=== PATIENT | female | born 1945 | race Caucasian/White ===

== ENCOUNTER 2025-05-12 14:01 | Outpatient (REF) | payer MEDICARE, SELFPAY ==
--- OUTSIDE RECORDS SUMMARY | 2025-04-02 06:15 | XMS_ITS | Continuity of Care Document ---
Author Organization [facility] Address [address] [place] [address] Dr [address] [place] [address] Phone Care Team Providers Care Platform Mill Supervisor Name Role Phone Alberto SEGURA, MIGUEL, Randall CANNON Unavailable U navailable Allergies, Adverse Reactions, Alerts Substance Reaction Status Criticality PENICILLIN Active No Information Procedures Procedure Date Offic/outpt E&m Estab 5 Min Trial- Telem edicine CT & [place] Office/Oupt E&M New Pt 45 Mins- CT & [place] Surgical Stockings CVR Reveal Thigh High Duplex Scan-extrem Veins; Uni/ CT & [place] F Advance Directives Directive Yes / No Effective Date File Name No Information Encounters Encounter Description Practice Location Reason(s) For Visit Diagnoses Date Provider Providers Copied on Encounter [facility], [address] [place] [address] Dr Moe [address], [id number], [place] tel:[phone] [facility] No Information Alberto SEGURA, DAVIS RIVERA. [address] [facility] [address], [facility] [place], [id number], [place]. tel:[phone] Offic/outpt E&m Estab 5 Min Trial- Telemedicine CT & [place] [facility], [address] [place] [address] Dr Moe [address]Kathy [place], [id number], tel:[phone] CVR - [facility] Localized edemaCramp and spasmRestless legs syndromeVenou s insufficiency (chronic) (peripheral)E ssential (primary) hypertensionP ruritus, unspecified 5 Luisito Urbano. [facility] [address], [place], [id number], [place]. tel:[phone] Referring Provider: Gina Jose [facility] [address], [place], [address]. tel:[phone] Office/Oupt E&M New Pt 45 Mins- CT & [place] [facility], [address] [place] [address] [address], [place], [id number], [place] tel:[phone] CVR - [place] Varicose veins of left lower extremity with other complications Pain in left lower legLocalized edemaCramp and spasmRestless legs syndromeEssen tial (primary) hypertensionP ruritus, unspecified 5 Alberto SEGURA RVT, DAVIS Pereira. [facility] [address], [place], [id number], [place]. tel:[phone] Referring Provider: Gina Jose [facility] [address], [place], [address]. tel:[phone] [facility], [address] [place] [address] [address], [place], [id number], [place] tel:[phone] CVR [place] Varicose veins of left lower extremity with pain 5 Alberto SEGURA RVT, DAVIS Pereira. [facility], [place], [id number], [place]. tel:[phone] Referring Provider: Gina Jose [facility] [address], [place], [address]. tel:[phone] Family History Family Member Type Diagnosis Age At Onset No Information Payers Payer name Insurance type Covered green party ID Authorroxannea rickey(s) [employer] Medicare CI [id number] Social History Type Description Quantity Date Captured Comments Sex Female Smoking Status No Information Chief Complaint And Reason For Visit No Information Reason For Referral Reason For Referral No Information Plan Of Treatment Date Type Action Status Appointment Naomi Cannon BOOKED Appointment Naomi Cannon BOOKED History Of Present Illness Encounter Date Complaint History Of Prese nt Illness No Information Functional Status Date Functional Assessmen t No Information Instructions Date Instruction Additional Infor mation Patient education booklet given Related to Localized edema Pre and post instruc tions reviewed and provided Related to Localized edema Patient education booklet given Related to Varicose veins of left lower extremity with other complications Pre and post instruc tions reviewed and provided Related to Varicose veins of left lower extremity with other complications Assessments Type Assessment Date No Information Patient Care Teams Name Effective Dates (start - stop) Status Members No Information
--- NOTE | ~2025-05-12 | MM_ITS ---
EXAMINATION: DXA BONE DENSITY AXIAL HISTORY: Z78.0 POST MENOPAUSAL TECHNIQUE: [employer] Dual energy absorptiometry (DEXA) of the lumbar spine, total left hip, and femoral neck was performed. COMPARISON: There are no prior studies for comparison. FINDINGS: The bone mineral density of the lumbar spine is 1.259 g/cm2, corresponding to a T-score of 0.7, and a Z-score of 2.9. This is indicative of normal bone mineral density. The bone mineral density of the left total hip is 0.807 g/cm2, corresponding to a T-score of -1.6, and a Z-score of 0.6. This is indicative of osteopenia. The bone mineral density of the left femoral neck is 0.695 g/cm2, corresponding to a T-score of -2.5, and a Z-score of -0.1. This is indicative of osteoporosis. FRACTURE RISK: The FRAX index suggests a risk of major osteoporotic fracture of 17.0%, and of hip fracture 6.0%. MM/XR DEXA axial skeleton IMPRESSION: Based on bone mineral density, and according to World Health Organization (WHO) criteria, the diagnosis is consistent with osteoporosis. Statistically, 68% of repeat scans fall within 1 SD (+/- 0.010 g/cm2 for AP spine L1-L4) and 1 SD (+/- 0.012 g/cm2 for femur total) FRAX is a trademark of the [employer] Met[employer], a World Health Organization (WHO) Collaborating Center. Electronically signed by: Randall Gonsales MD 05/12/2025 03:18 PM EDT
--- OUTSIDE RECORDS SUMMARY | 2025-05-12 15:21 | XMS_ITS | Clinical Summary ---
Author Organization [facility] [address] [facility] Address [address] [place] [address] Phone Care Team Providers Care Railroad Track Inspector Name Role Phone Gina Jose NP Primary Care Provider [phone] Allergies Active Allergy Reactions Criticality Noted Date Comments Penicillins Unknown High 09/30/2024 Maybe hives Medications No known medications Medical History Medical History Date Comments Hypertension Hyperlipemia Rapid heart rate Social History Tobacco Use Types Packs/Day Years Used Date Smoking Tobacco: Never Smokeless Tobacco: Never Tobacco Cessation:Counseling Given: Not Answered Alcohol Use Standard Drinks/Week Comments Yes 3 (1 standard drink = 0.6 oz pur e alcohol) Comments Unknown Sex and Gender Information Value Date Recorded Sex Assigned at Female 09/24/2024 10:22 AM EST Legal Sex Female 11:03 AM EDT Gender Identity Female 09/24/2024 10:22 AM EST Sexual Orientation Straight 09/24/2024 10 :22 AM EST Obstetrics History Last Filed Vital Signs Vital Sign Reading Time Taken Comments Blood Pressure 151/67 09/30/2024 6:14 PM EST Pulse 88 09/30/2024 6:14 PM EST Temperature 36.4 C (97.5 F) 09/30/2024 6:14 PM EST Respiratory Rate 18 09/30/2024 6:14 PM EST Oxygen Saturation 100% 09/30/2024 6:14 PM EST Inhaled Oxygen Concentration - - Weight 55.1 kg (121 lb 8 oz) 09/30/2024 12:39 PM EST Height 154.9 cm (5' 1 ) 09/30/2024 12:39 PM EST Body Mass Index 22.96 09/30/2024 12:39 PM EST Plan of Treatment Health Maintenance Due Date Last Done Comments DTaP,Tdap,and Td Vaccines (1 - Tdap) 1965 Pneumococcal Vaccine: 50+ Ye ars (1 of 1 - PCV) 1996 Zoster Vaccines (1 of 2) 1996 RSV Immunization Adult Patie nts (1 - 1-dose 75+ series) 2021 Falls Risk Assessment 05/23/2024 Hepatitis C Screening 05/23/2024 Medicare Annual Wellness Visit 05/23/2024 Osteoporosis Screening (Bone Density Screening) 05/23/2024 Social Influencers of Health Screening 05/23/2024 COVID-19 Vaccine ( - 2023-2 5 season) 2024 Depression Screening 10/22/2024 Influenza Vaccine (#1) 2025 HIB Vaccines Aged Out No longer eligi ble based on patient's age to complete this topic HPV Vaccines Aged Out No longer eligi ble based on patient's age to complete this topic Hepatitis A Vaccines Aged Out No long er eligible based on patient's age to complete this topic Hepatitis B Vaccines Aged Out No long er eligible based on patient's age to complete this topic IPV Vaccines Aged Out No longer eligi ble based on patient's age to complete this topic MMR Vaccines Aged Out No longer eligi ble based on patient's age to complete this topic Meningococcal ACWY Vaccine Aged Out N o longer eligible based on patient's age to complete this topic Meningococcal B Vaccine Aged Out No l onger eligible based on patient's age to complete this topic RSV Immunization Patients Un cirilo 20 months Aged Out No longer eligible b ased on patient's age to complete this topic Varicella Vaccines Aged Out No longer eligible based on patient's age to complete this topic [place] [address] [place] [address] MEDICARE ADVANTAGE on file Care Teams Railroad Track Inspector Relationship Specialty Start Date End Date Gina Jose NP [address] [place] [address] DR COUCH, [place] [phone] PCP - General Family Medicine 01/22/25
--- OUTSIDE RECORDS SUMMARY | 2025-05-12 15:21 | XMS_ITS | Patient Health Record ---
Author Organization [facility] [place] Address [address] [place] [address] Care Team Providers Care Scaleman Name Role Phone Steven Echeverria Primary Care Provider Allergies Allergen (clinical drug ingredient) Drug/Non Drug Allergy documented on EMR Reaction Allergy Type Onset Date Status Penicillin Anaphylaxis-Stre ptomycin Drug Allergy Active Reason For Referral No Information Medications Medication SIG (Take, Route, Frequency, Duration) Notes Start Date End Date Status Lisinopril 10 MG 1 tablet Orally Once a day; Duration: 30 day(s) Active Rosuvastatin Calcium 5 MG 1 tablet Orall y Once a day; Duration: 30 day(s) Active Metoprolol Tartrate 25 MG 1 tablet with food Orally Twice a day; Duration: 30 day(s) Active Social History Tobacco Use/Smoking Question Answer Notes Additional Findings: Tobacco Non-User Aggressive non-smoker Alcohol Screen Question Answer Notes Did you have a drink containing alcohol in the p ast year? 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
== END 2025-05-12 14:02 | disposition home or self-care (01) ==
LOC: HO.MAMMO 14:01
PROVIDERS: PCP Nurse Practitioner Family; Visit Provider Nurse Practitioner Family
DX: Z12.31 Encounter for screening mammogram for malignant neoplasm of breast (principal); Z13.820 Encounter for screening for osteoporosis; Z78.0 Asymptomatic menopausal state
CPT/HCPCS: 77063; 77067; 77080

== ENCOUNTER → 2025-05-12 14:30 | Outpatient (BNV) | payer MEDICARE, SELFPAY | PROVIDERS: PCP Nurse Practitioner Family; Visit Provider Radiology Diagnostic Radiology | DX: E28.39 Other primary ovarian failure (principal) | CPT/HCPCS: 77080 ==